=== PATIENT | male | born 1995 | race African-American/Black ===

== ENCOUNTER 2018-10-19 19:39 | Emergency (ER) | payer BC, SELFPAY ==
[2018-10-19] MEDS ORDERED: Ibuprofen 800 MG TAB ONE (20:05)
== END 2018-10-19 20:35 | disposition home or self-care (01) ==
LOC: NAV ERS 19:39
DX: B34.9 Viral infection, unspecified (principal); E78.5 Hyperlipidemia, unspecified
CPT/HCPCS: 87081; 87430; 87804; 99283